=== PATIENT | female | born 1990 | race Caucasian/White ===

== ENCOUNTER 2018-08-04 10:53 | Emergency (ER) | payer MEDICAID, OTHER ==
--- NOTE | 2018-08-04 11:00 | EDPHY ---
H & P Time Seen by Provider: 08/04/18 10:59 HPI/ROS: CHIEF COMPLAINT: Nausea vomiting post heavy alcohol use last evening HISTORY OF PRESENT ILLNESS: 27-year-old female arrives from her home in [facility] via ambulance complaining of acute nausea and vomiting after heavy alcohol use last evening. Denies: Nausea, vomiting, seizure, hallucination, back or flank pain, urinary abnormality PRIMARY CARE PROVIDER: REVIEW OF SYSTEMS: 10 systems reviewed and negative with the exception of the elements mentioned in the history of present illness PAST MEDICAL & SURGICAL HISTORY: No pertinent medical or surgical history SOCIAL HISTORY:Positive for heavy alcohol use last evening. PHYSICAL EXAM (Prior to examination, patient consented to physical exam, hands were washed and my usual and customary physical exam procedures followed) 1) GENERAL: Well-developed, well-nourished, alert and oriented. Appears to be in no acute distress. 2) HEAD: Normocephalic, atraumatic 3) HEENT: Pupils equal, round, reactive to light bilaterally. Sclera anicteric. Nasopharynx, oropharynx, clear, no lesions. Dry mucous membranes. 4) NECK: Full range of motion, no meningeal signs. 5) LUNGS: Clear auscultation bilaterally, no wheezes, no rhonchi, no retractions. 6) HEART: Regular rate and rhythm, no murmur, no heave, no gallop. 7) ABDOMEN: No guarding, no rebound, no focal tenderness, negative McBurney's, negative Colon's, negative Rovsing's, negative peritoneal sign, 8) MUSCULOSKELETAL: Moving all extremities, no focal areas of tenderness, no obvious trauma. No peripheral edema or discoloration. 9) BACK: No CVA tenderness, no midline vertebral tenderness, no fluctuance, no step-off, no obvious trauma, no visual or palpable abnormality. 10) SKIN: No rash, no petechiae. 11) Psychiatric: Patient is oriented X 3, there is no agitation. DIFFERENTIAL DIAGNOSIS: In no particular order including but not limited to acute alcohol withdrawal, nausea vomiting secondary to heavy alcohol use, delirium tremens, acute pancreatitis Constitutional: Initial Vital Signs Temperature (C) 36.3 C 08/04/18 10:58 Heart Rate 65 08/04/18 10:58 Respiratory Rate 18 08/04/18 10:58 Blood Pressure 120/78 08/04/18 10:58 O2 Sat (%) 100 08/04/18 10:58 O2 Delivery Mode Room Air Allergies/Adverse Reactions: codeine Allergy (Verified 08/04/18 10:57) Home Medications: Medication Instructions Recorded Cymbalta 08/04/18 Ondansetron Odt [Zofran Odt] 4 mg PO Q4PRN PRN #7 tab 08/04/18 Medical Decision Making ED Course/Re-evaluation: 11:59 a.m.: Re-evaluation with serial exams was recently at this time. She is tolerating oral intake. Abdomen remained soft no guarding no rebound. I am unable to elicit any abdominal pain on exam. Doubt acute pancreatitis in the presence of normal lipase. Doubt delirium tremens. Doubt acute surgical abdominal pathology. At this time I think the patient can be discharged home. Recommend moderation with alcohol use in the future. Given my usual and customary abdominal precautions and instructions. Care of patient under supervision of primary Supervising physician Dr Pereira. - Data Points Laboratory Results: Laboratory Results 08/04/18 11:25 08/04/18 11:25 08/04/18 08/04/18 08/04/18 11:25 11:25 11:25 WBC 12.38 10^3/uL H 10^3/uL (3.80-9.50) RBC 4.30 10^6/uL 10^6/uL (4.18-5.33) Hgb 13.9 g/dL g/dL (12.6-16.3) Hct 40.7 % % (38.0-47.0) MCV 94.7 fL fL (81.5-99.8) MCH 32.3 pg pg (27.9-34.1) MCHC 34.2 g/dL g/dL (32.4-36.7) RDW 12.3 % % (11.5-15.2) Plt Count 229 10^3/uL 10^3/uL (150-400) MPV 9.8 fL fL (8.7-11.7) Neut % (Auto) 90.2 % H % (39.3-74.2) Lymph % (Auto) 6.8 % L % (15.0-45.0) Mccormick % (Auto) 2.2 % L % (4.5-13.0) Eos % (Auto) 0.0 % L % (0.6-7.6) Baso % (Auto) 0.3 % % (0.3-1.7) Nucleat RBC Rel Count 0.0 % % (0.0-0.2) Absolute Neuts (auto) 11.17 10^3/uL H 10^3/uL (1.70-6.50) Absolute Lymphs (auto) 0.84 10^3/uL L 10^3/uL (1.00-3.00) Absolute Monos (auto) 0.27 10^3/uL L 10^3/uL (0.30-0.80) Absolute Eos (auto) 0.00 10^3/uL L 10^3/uL (0.03-0.40) Absolute Basos (auto) 0.04 10^3/uL 10^3/uL (0.02-0.10) Absolute Nucleated RBC 0.00 10^3/uL 10^3/uL (0-0.01) Immature Gran % 0.5 % % (0.0-1.1) Immature Gran # 0.06 10^3/uL 10^3/uL (0.00-0.10) Sodium 140 mEq/L mEq/L (135-145) Potassium 4.6 mEq/L mEq/L (3.5-5.2) Chloride 112 mEq/L H mEq/L (97-110) Carbon Dioxide 14 mEq/l L mEq/l (22-31) Anion Gap 14 mEq/L mEq/L (6-14) BUN 20 mg/dL mg/dL (7-23) Creatinine 0.7 mg/dL mg/dL (0.6-1.0) Estimated GFR > 60 Glucose 65 mg/dL L mg/dL (70-100) Calcium 8.6 mg/dL mg/dL (8.5-10.4) Total Bilirubin 1.1 mg/dL mg/dL (0.1-1.4) Conjugated Bilirubin 0.3 mg/dL mg/dL (0.0-0.5) Unconjugated Bilirubin 0.8 mg/dL mg/dL (0.0-1.1) AST 63 IU/L H IU/L (14-46) ALT 52 IU/L IU/L (9-52) Alkaline Phosphatase 45 IU/L IU/L (38-126) Total Protein 6.8 g/dL g/dL (6.3-8.2) Albumin 4.4 g/dL g/dL (3.5-5.0) Lipase 42 IU/L IU/L (23-300) Beta HCG, Qual NEGATIVE Departure - Departure Disposition: Home, Routine, Self-Care Clinical Impression: Volume depletion Nausea & vomiting Qualifiers: Vomiting type: unspecified Vomiting Intractability: non-intractable Qualified Code(s): R11.2 - Nausea with vomiting, unspecified Condition: Good Instructions: Acute Nausea and Vomiting (ED) Additional Instructions: Please exercise moderation with alcohol in the future. Return to the ER if you develop abdominal pain, inability to tolerate oral intake or any other symptoms that concern you. Referrals: [facility],. [Clinic] - 2-3 days, call for appt. Prescriptions: Ondansetron Odt [Zofran Odt] 4 mg PO Q4PRN PRN #7 tab PRN Reason: Nausea
[2018-08-04 11:33] LABS: PLATELET COUNT 229 10^3/uL (150-400)
[2018-08-04 12:12] VITALS: BP 110/82
== END 2018-08-04 12:27 | disposition home or self-care (01) ==
LOC: EDUNIT#
DX: R11.2 Nausea with vomiting, unspecified (principal)

== ENCOUNTER 2018-08-28 08:00 | Emergency (ER) | payer MEDICAID | END 2018-08-28 08:43 | disposition home or self-care (01) ==